=== PATIENT | female | born 1945 | race Caucasian/White ===

== ENCOUNTER → 2025-01-08 | Outpatient (REF) | payer MEDICARE, OTHER ==
[~2025-01-08] MED LIST: IOPAMIDOL 370 MG/ML 100 ML INFUS..BTL INJ ONE; SODIUM CHLORIDE 0.9% 100 ML ONE
[2025-01-08 12:12] LABS: CREATININE, SERUM 0.74 mg/dL (0.57-1.11)
== END ==
LOC: CT 11:35
PROVIDERS: ATTEND Internal Medicine Cardiovascular Disease
DX: I65.21 Occlusion and stenosis of right carotid artery (principal)
CPT/HCPCS: 36415; 70498; 82565; 84520; J7050; Q9967